=== PATIENT | female | born 1985 ===

== ENCOUNTER 2018-04-19 11:15 | Inpatient (IN) | payer OTHER ==
[~2018-04-19] VITALS: Ht 160 cm; Wt 58.1 kg
[2018-04-19] MEDS ORDERED: PRENATAL 19 TA1 EAC1 PO (22:34)
== END 2018-04-22 16:57 | DRG 807 ==
LOC: OB/GYN 11:15 → LDR 22:23 → OB/GYN 04-20 08:34
PROVIDERS: ADMIT Specialist
PROC: 10E0XZZ Delivery of Products of Conception, External Approach (ICD-10-PCS; principal; 2018-04-19)
PROC: 0HQ9XZZ Repair Perineum Skin, External Approach (ICD-10-PCS; 2018-04-19)
PROC: 10907ZC Drainage of Amniotic Fluid, Therapeutic from Products of Conception, Via Natural or Artificial Opening (ICD-10-PCS; 2018-04-19)
PROC: 4A1HXCZ Monitoring of Products of Conception, Cardiac Rate, External Approach (ICD-10-PCS; 2018-04-19)
DX: O70.0 First degree perineal laceration during delivery (principal); Z37.0 Single live birth; Z3A.39 39 weeks gestation of pregnancy

== ENCOUNTER 2018-04-19 14:51 | Outpatient (CLI) | payer OTHER ==
[2018-04-19] MEDS ORDERED: PRENATAL 19 TA1 EAC1 PO (22:34)
== END 2018-04-19 15:08 | disposition home or self-care (01) ==
LOC: NST 14:51
DX: Z34.83 Encounter for supervision of other normal pregnancy, third trimester (principal)